=== PATIENT | male | born 1960 | race Caucasian/White ===

== ENCOUNTER 2019-12-25 18:35 | Emergency (ER) | payer OTHER ==
[~2019-12-25] VITALS: Ht 180.3 cm; Wt 101.0 kg
[2019-12-25 19:42] LABS: BASOPHILS # (AUTO) 0.05 x10^3/uL (0-0.1); BASOPHILS % (AUTO) 0 % (0-1); EOSINOPHILS # (AUTO) 0.11 x10^3/uL (0-0.4); EOSINOPHILS % (AUTO) 1 % (1-7); LYMPHOCYTES # (AUTO) 1.63 x10^3/uL (1-3.4); LYMPHOCYTES % (AUTO) 15 % (22-44); MD NO; MEAN CORPUSCULAR HEMOGLOBIN 29.8 pg (27.5-34.5); MEAN CORPUSCULAR HGB CONC 33.1 g/dL (33.2-36.2); MONOCYTES # (AUTO) 0.69 x10^3/uL (0.2-0.8); MONOCYTES % (AUTO) 7 % (2-9); NEUTROPHILS # (AUTO) 8.23 x10^3/uL (1.8-6.8); NEUTROPHILS % (AUTO) 77 % (42-75); PLATELET COUNT 272 x10^3/uL (130-400); RED BLOOD COUNT 5.02 x10^6/uL (4.38-5.82); RED CELL DISTRIBUTION WIDTH 13.2 % (9.4-14.8)
[2019-12-25 19:57] LABS: ALBUMIN 4.1 g/dL (3.4-5.0); ANION GAP 7 mmol/L (5-15); CALCIUM 9.1 mg/dL (8.5-10.1); CHLORIDE 109 mmol/L (98-107); CREATININE 1.08 mg/dL (0.7-1.3)
[2019-12-25 20:01] LABS: TROPONIN I < 0.015 ng/mL (0.000-0.045)
[2019-12-25 20:06] VITALS: BP 133/84
--- NOTE | 2019-12-25 20:07 | NUR ---
PT RESTING IN [facility]. AWAITING X RAY RESULTS
== END 2019-12-25 21:03 | disposition home or self-care (01) ==
LOC: ED 19:28
DX: J15.9 Unspecified bacterial pneumonia (principal); Z20.828 Contact with and (suspected) exposure to other viral communicable diseases; R06.89 Other abnormalities of breathing
CPT/HCPCS: 36415; 71045; 80048; 82040; 84484; 85025; 85379; 93005; 99285; U0001